=== PATIENT | female | born 1975 | race Caucasian/White ===

== ENCOUNTER 2019-07-15 15:34 | Emergency (ER) | payer MEDICAID ==
[~2019-07-15] VITALS: Ht 162.6 cm; Wt 86.0 kg
[2019-07-15] MEDS ORDERED: SODIUM CHLORIDE 0.9% 1,000 ML IV ONE (16:59)
[2019-07-15 17:38] LABS: CLARITY URINE CLEAR (CLEAR); COLOR URINE YELLOW (YELLOW); KETONES URINE TRACE (NEGATIVE); LEUKOCYTE ESTERASE URINE NEGATIVE (NEGATIVE); NITRITE URINE NEGATIVE (NEGATIVE); OCCULT BLOOD URINE NEGATIVE (NEGATIVE); PROTEIN URINE NEGATIVE (NEGATIVE); SPECIFIC GRAVITY URINE 1.026 (1.005-1.030); UROBILINOGEN URINE 0.2 E.U./dL (0.2-1.0)
[2019-07-15 18:58] LABS: D-DIMER 0.81 mg/L FEU (<0.50); PROTHROMBIN TIME 9.9 sec (9.6-11.0)
[2019-07-15 19:03] LABS: CHLORIDE 108 mEq/L (98-107)
[2019-07-15 19:26] LABS: B-HCG QUANTITATIVE 115813 mIU/mL (<3)
[2019-07-15 20:12] LABS: BASOPHILS % 0.4 % (0.0-2.0); EOSINOPHILS % 1.3 % (0.0-5.0); HEMATOCRIT. 36.8 % (36.0-48.0); HEMOGLOBIN. 12.5 g/dL (12.0-16.0); LYMPHOCYTES % 24.8 % (20.0-50.0); MEAN CORPUSCULAR HEMOGLOBIN 30.5 pg (28.0-32.0); MEAN CORPUSCULAR VOLUME 89.9 fL (81.0-99.0); MEAN PLATELET VOLUME 8.5 fl (7.4-10.4); MONOCYTES % 6.9 % (2.0-8.0); NEUTROPHILS % 66.6 % (40.0-76.0); PLATELET 239 x1000/uL (130-400); RED BLOOD CELL COUNT 4.09 mill/uL (4.2-5.4); RED CELL DISTRIBUTION WIDTH 16.5 % (11.6-14.6)
[2019-07-15] MEDS ORDERED: IOHEXOL-350 100 ML BOTTLE ONE (21:29)
[2019-07-15 21:44] VITALS: BP 131/64
== END 2019-07-15 22:01 | disposition home or self-care (01) ==
LOC: ER 15:34
DX: O99.511 Diseases of the respiratory system complicating pregnancy, first trimester (principal); R06.02 Shortness of breath; O99.89 Other specified diseases and conditions complicating pregnancy, childbirth and the puerperium; M54.30 Sciatica, unspecified side; M79.652 Pain in left thigh; Z98.890 Other specified postprocedural states; Z3A.09 9 weeks gestation of pregnancy; O26.891 Other specified pregnancy related conditions, first trimester
CPT/HCPCS: 36415; 71045; 71275; 76801; 76817; 80053; 81003; 81025; 83880; 84484; 84702; 85025; 85379; 85610; 86850; 86900; 86901; 93005; 93970; 99284; J7030; Q9967; Z7610

== ENCOUNTER 2019-08-24 17:40 | Emergency (ER) | payer MEDICAID ==
[~2019-08-24] VITALS: Ht 167.6 cm; Wt 91.0 kg
[2019-08-24 18:38] VITALS: BP 131/70
== END 2019-08-24 21:21 | disposition left against medical advice (07) ==
LOC: ER 17:46
DX: R10.9 Unspecified abdominal pain (principal); Z53.21 Procedure and treatment not carried out due to patient leaving prior to being seen by health care provider